=== PATIENT | female | born 1975 | race Caucasian/White ===

== ENCOUNTER 2019-05-03 20:24 | Emergency (ER) | payer OTHER ==
[~2019-05-03 20:24] MED LIST: ISOVUE-370 76%-LOCM 1 ML ONE
[2019-05-03] MEDS ORDERED: Ondansetron PF 4 MG/2 ML Vial ONE (21:35)
[2019-05-03 21:58] LABS: #Monocytes 1.3 thou/uL (0.11-0.59); %Eosinophils 0.2 % (0.0-10.0); %Lymphocytes 15.1 % (21.0-51.0); %Monocytes 9.9 % (0.0-10.0); %Neutrophils 74.9 % (42.0-75.0); Hemoglobin 13.3 g/dL (12.0-16.0); Mean Corpuscular HGB CONC 32.9 g/dL (32.0-36.0); Mean Corpuscular Hemoglobin 32.1 pg (27.0-31.0); Mean Corpuscular Volume 97.5 fL (78.0-98.0); Mean Platelet Volume 8.2 fL (7.4-10.4); Platelet Count 213 thou/uL (130-400); RBC Distribution Width 11.4 % (11.5-14.5); Red Blood Cell (RBC) Count 4.15 mill/uL (4.20-5.40); White Blood Cell (WBC) Count 13.3 thou/uL (4.8-10.8)
[2019-05-03 22:07] LABS: Bilirubin Negative (Negative); Blood, Urine Negative (Negative); Clarity Clear (Clear); Glucose, Urine (Dipstick) Normal (Negative); Leukocyte Negative Leu/uL (Negative); Nitrite Negative (Negative); Protein, Urine (Dipstick) 10 mg/dL (Neg-Trace)
[2019-05-03 22:19] LABS: ALT (SGPT) 18 U/L (8-55); AST (SGOT) 17 U/L (5-34); Albumin 3.8 g/dL (3.5-5.0); Alkaline Phosphatase 64 U/L (40-110); Anion Gap 14 mmol/L (10-20); BUN (Urea Nitrogen) 9 mg/dL (7.0-18.7); Bilirubin, Total 1.4 mg/dL (0.2-1.2); Calc. Creatinine Clearance 0 mL/min (70-130); Calcium 8.3 mg/dL (7.8-10.44); Carbon Dioxide 18 mmol/L (22-29); Chloride 106 mmol/L (98-107); Estimated GFR-MDRD 83; Globulin 2.9 g/dL (2.4-3.5); Glucose 87 mg/dL (70-105); Lipase 8 U/L (8-78); Potassium 4.6 mmol/L (3.5-5.1); Protein, Total 6.7 g/dL (6.0-8.3); Sodium 133 mmol/L (136-145)
[2019-05-03] MEDS ORDERED: Morphine 4 MG/ML VIAL ONE ×2 (23:00→23:02)
--- NOTE | 2019-05-03 23:21 | CT ---
CT ABDOMEN AND PELVIS WITH IV CONTRAST: 05/03/19 HISTORY: Periumbilical and suprapubic abdominal pain with vomiting. COMPARISON: None. FINDINGS: The lung bases are clear. The liver, spleen, pancreas, bilateral adrenal glands, kidneys, abdominal aorta and urinary bladder a s well as uterus demonstrate a normal CT appearance. Minimal vascular calcifications are seen in the iliac arteries. There is colonic wall thickening involving the sigmoid colon. A few colonic diverticula are seen and there is adjacent pericolonic inflammatory changes. These findings are most likely attributable to d iverticulitis. There is no fluid collection seen to suggest an abscess. No free intraperitoneal gas i s identified. No suspicious lytic or sclerotic osseous lesions are seen. There is mild degenerative changes at the lumbosacral junction. IMPRESSION: Evidence of diverticulitis without abscess collection or free intraperitoneal gas seen. However, foll ow-up to complete resolution is recommended to ensure resolution of the colonic wall thickening. POS: [id number]
[2019-05-03] MEDS ORDERED: metroNIDAZOLE 500 MG/100 ML BAG ONE (23:24)
== END 2019-05-04 01:40 | disposition home or self-care (01) ==
LOC: ERS 20:24
DX: K57.32 Diverticulitis of large intestine without perforation or abscess without bleeding (principal); G43.909 Migraine, unspecified, not intractable, without status migrainosus; F41.9 Anxiety disorder, unspecified; F32.9 Major depressive disorder, single episode, unspecified; Z79.899 Other long term (current) drug therapy
CPT/HCPCS: 74177; 80053; 81003; 83690; 85025; 96361; 96365; 96367; 96375; J0744; J2270; J2405

== ENCOUNTER 2020-10-17 13:17 | Outpatient (CLI) | payer OTHER | END 2020-10-17 13:18 | disposition home or self-care (01) | LOC: BICMAMMO 13:17 | PROVIDERS: ATTEND Family Medicine | DX: Z12.31 Encounter for screening mammogram for malignant neoplasm of breast (principal) | CPT/HCPCS: 77063; 77067 ==

== ENCOUNTER 2022-06-18 12:33 | Emergency (ER) | payer OTHER ==
[2022-06-18] MEDS ORDERED: Ondansetron PF 4 MG/2 ML Vial ONE (13:52)
[2022-06-18] MEDS ORDERED: Prochlorperazine 10 MG/2 ML VIAL ONE (13:52)
[2022-06-18] MEDS ORDERED: diphenhydrAMINE 50 MG/ML VIAL ONE (13:52)
[2022-06-18] MEDS ORDERED: Ketorolac Tromethamine 30 MG/ML VIAL ONE (13:52)
[2022-06-18] MEDS ORDERED: Acetaminophen 500 MG TAB ONE (13:52)
[2022-06-18 14:33] LABS: #Lymphocytes 2.2 thou/uL (1.20-3.40); #Monocytes 0.6 thou/uL (0.11-0.59); #Neutrophils 5.3 thou/uL (1.40-6.50); %Basophils 0.1 % (0.0-1.0); %Eosinophils 0.1 % (0.0-10.0); %Lymphocytes 26.8 % (21.0-51.0); %Monocytes 7.3 % (0.0-10.0); %Neutrophils 65.7 % (42.0-75.0); Hemoglobin 13.8 g/dL (12.0-16.0); Mean Corpuscular HGB CONC 33.8 g/dL (32.0-36.0); Mean Corpuscular Hemoglobin 32.9 pg (27.0-31.0); Mean Corpuscular Volume 97.4 fl (78.0-98.0); Platelet Count 250 10x3/uL (130-400); RBC Distribution Width 11.3 % (11.5-14.5)
[2022-06-18 14:52] LABS: ALT (SGPT) 25 U/L (8-55); AST (SGOT) 19 U/L (5-34); Albumin 4.4 g/dL (3.5-5.0); Alkaline Phosphatase 74 U/L (40-110); Anion Gap 10 mmol/L (10-20); BUN (Urea Nitrogen) 13 mg/dL (7.0-18.7); Bilirubin, Total 0.6 mg/dL (0.2-1.2); Calc. Creatinine Clearance 0 mL/min (70-130); Calcium 8.5 mg/dL (7.8-10.44); Carbon Dioxide 24 mmol/L (22-29); Chloride 107 mmol/L (98-107); Estimated GFR 77; Globulin 2.8 g/dL (2.4-3.5); Glucose 89 mg/dL (70-105); Potassium 3.7 mmol/L (3.5-5.1); Protein, Total 7.2 g/dL (6.0-8.3); Sodium 137 mmol/L (136-145)
== END 2022-06-18 15:50 | disposition home or self-care (01) ==
LOC: ERS 12:33
DX: G43.909 Migraine, unspecified, not intractable, without status migrainosus (principal); G89.29 Other chronic pain; E86.0 Dehydration; Z87.891 Personal history of nicotine dependence
CPT/HCPCS: 36415; 80053; 85025; 96361; 96374; 96375; J0780; J1200; J1885; J2405

== ENCOUNTER 2022-08-29 17:40 | Emergency (ER) | payer OTHER ==
[2022-08-29] MEDS ORDERED: Fentanyl 100 MCG/2 ML VIAL ONE (19:24)
[2022-08-29] MEDS ORDERED: Dexamethasone 4 mg/ml Vial ONE (19:25)
[2022-08-29] MEDS ORDERED: Ondansetron PF 4 MG/2 ML Vial ONE (19:25)
[2022-08-29] MEDS ORDERED: Metoclopramide HCl 10 MG/2 ML VIAL ONE (19:25)
== END 2022-08-29 20:48 | disposition home or self-care (01) ==
LOC: ERS 17:40
DX: G43.909 Migraine, unspecified, not intractable, without status migrainosus (principal); Z87.891 Personal history of nicotine dependence
CPT/HCPCS: 96365; 96375; J1100; J2405; J2765; J3010

== ENCOUNTER 2023-04-21 08:39 | Outpatient (CLI) | payer OTHER | END 2023-04-21 08:40 | disposition home or self-care (01) | LOC: BICMAMMO 08:39 | PROVIDERS: ATTEND Family Medicine | DX: Z12.31 Encounter for screening mammogram for malignant neoplasm of breast (principal) | CPT/HCPCS: 77063; 77067 ==

== ENCOUNTER 2024-01-29 12:30 | Emergency (ER) | payer OTHER | END 2024-01-29 13:40 | disposition left against medical advice (07) | LOC: ERS 12:30 | DX: Z53.21 Procedure and treatment not carried out due to patient leaving prior to being seen by health care provider (principal) ==